=== PATIENT | female | born 1950 | race American Indian/Alaskan Native ===

== ENCOUNTER 2017-09-15 11:36 | Emergency (ER) | payer MEDICARE, OTHER ==
[2017-09-15 11:37] VITALS: BMI 39.8
[2017-09-15] MEDS ORDERED: Lidocaine 1% Inj (20ml) IJ STA (12:06)
[2017-09-15] MEDS ORDERED: TDAP Vaccine 0.5 mL Syr IM ONE (12:11)
--- NOTE | 2017-09-15 12:11 | ED PDOC ---
Arrival/HPI - General Chief Complaint: Finger,Hand,&Wrist Time Seen by Provider: 09/15/17 12:03 Historian: Patient - History of Present Illness Narrative History of Present Illness (Text): 09/15/17 12:07 67yo female with PMhx of hypertension who present with complaint of laceration to her left Hayden hand. states she accidentally cut her hand with a butter knife. She is not sure of her TD vaccine status. Denies any other complaint. Past Medical History - Provider Review Nursing Documentation Reviewed: Yes - Infectious Disease Hx of Infectious Diseases: None - Cardiac Hx Hypertension: Yes - Hematological/Oncological Hx Cancer: Yes (b/l breast) - Psychiatric Hx Substance Use: No - Surgical History Hx Mastectomy: Yes (b/l) Hx Open Heart Surgery: Yes Family/Social History - Physician Review Nursing Documentation Reviewed: Yes Family/Social History: Unknown Family HX Smoking Status: Never Smoked Hx Alcohol Use: No Hx Substance Use: No Allergies/Home Meds Allergies/Adverse Reactions: Allergies No Known Allergies Allergy (Verified 09/15/17 11:57) Home Medications: Home Meds Medication Instructions Recorded Confirmed Atorvastatin [Lipitor] 1 tab PO DAILY 09/15/17 09/15/17 Carvedilol [Coreg] 1 tab PO BID 09/15/17 09/15/17 Potassium Chloride [K-Tab] 20 meq PO DAILY 09/15/17 09/15/17 Review of Systems - Physician Review All systems were reviewed & negative as marked: Yes - Review of Systems Constitutional: Normal Eyes: Normal ENT: Normal Respiratory: Normal Cardiovascular: Normal Gastrointestinal: Normal Genitourinary Female: Normal Musculoskeletal: Normal Skin: Laceration (Left hand) Neurological: Normal Endocrine: Normal Hemo/Lymphatic: Normal Psychiatric: Normal Physical Exam Vital Signs Reviewed: Yes Vital Signs Temp Pulse Resp BP Pulse Ox 09/15/17 12:54 98 F 75 18 145/97 H 98 09/15/17 12:32 105 H 18 145/97 H 97 09/15/17 11:37 98.2 F 78 18 203/102 H 98 Temperature: Afebrile Blood Pressure: Normal Pulse: Regular Respiratory Rate: Normal Appearance: Positive for: Well-Appearing, Non-Toxic, Comfortable Pain Distress: None Mental Status: Positive for: Alert and Oriented X 3 - Systems Exam Head: Present: Atraumatic, Normocephalic Pupils: Present: PERRL Extroacular Muscles: Present: EOMI Conjunctiva: Present: Normal Mouth: Present: Moist Mucous Membranes Neck: Present: Normal Range of Motion Respiratory/Chest: Present: Clear to Auscultation, Good Air Exchange. No: Respiratory Distress, Accessory Muscle Use Cardiovascular: Present: Regular Rate and Rhythm, Normal S1, S2. No: Murmurs Abdomen: No: Tenderness, Distention, Peritoneal Signs Back: Present: Normal Inspection Upper Extremity: Present: Normal Inspection. No: Cyanosis, Edema Lower Extremity: Present: Normal Inspection. No: Edema Neurological: Present: GCS=15, CN II-XII Intact, Speech Normal Skin: Present: Warm, Dry, Normal Color, Laceration (1.6cm linear laceration on left hayden hand). No: Rashes Psychiatric: Present: Alert, Oriented x 3, Normal Insight, Normal Concentration Medical Decision Making ED Course and Treatment: 09/15/17 18:28 PT in ED for stated history. Wound was irrigated and approximated with 8interrupted sutures of #5 nylon. His TD booster was up dated. She was given prophylactic abx. Advised to keep wound clean and dry. referred to her PMD. - Medication Orders Current Medication Orders: Discontinued Medications Acetaminophen (Tylenol 325mg Tab) 650 mg PO STAT STA Stop: 09/15/17 12:12 Last Admin: 09/15/17 12:39 Dose: 650 mg Lidocaine HCl (Lidocaine 1% (20ml)) 1 ml IJ STAT STA Stop: 09/15/17 12:07 Tetanus/Reduced Diphtheria/Acell Pertussis (Boostrix Vaccine Inj) 0.5 ml IM .ONCE ONE Stop: 09/15/17 12:12 Last Admin: 09/15/17 12:39 Dose: 0.5 ml [facility] Immunization Data Document 09/15/17 12:39 [facility] (Rec: 09/15/17 12:40 [facility] [id number]) Immunization Data Vaccine Information Sheet Given No Procedure: Wound Repair - Consent Obtained Consent obtained: Verbal - Performed by Performed by: Mid-level Provider - Indications Indication(s):: Laceration - Location Location:: Left, Hand Shape:: Linear Dimensions Length cm: 1.6 Depth:: Epidermis - Anesthetic Technique Anesthetic Technique: Local Local/Regional Anesthetic:: Lidocaine 1% (5) - Debris Debris:: None - Irrigated Irrigated with ml of normal saline: 60 - Complexity Complexity:: Intermediate (2 layer) - Muscle repiar layer closed with Muscle repair layer closed with:: # (8), Size (5), Type (nylon), Technique ( interrupted), Wound well approximated, Abx ointment applied, Dressing applied, Tetanus ordered - Patient tolerated procedure Patient Tolerated Procedure:: Well Disposition/Present on Arrival - Present on Arrival Any Indicators Present on Arrival: No History of DVT/PE: No History of Uncontrolled Diabetes: No Urinary Catheter: No History of Decub. Ulcer: No History Surgical Site Infection Following: None - Disposition Have Diagnosis and Disposition been Completed?: Yes Diagnosis: Hand laceration Disposition: HOME/ ROUTINE Disposition Time: 12:35 Patient Plan: Discharge Condition: STABLE Discharge Instructions (ExitCare): Laceration Repair Additional Instructions: Keep wound clean and dry follow up with your doctor in 7 to 10daysfor suture removal Return to ED for fever, discharge, redness Prescriptions: Cephalexin [cephalexin] 500 mg PO TID #15 cap Referrals: [facility] at [place] [Outside] - Follow up with primary Forms: [facility] (Urdu), WORK NOTE
[2017-09-15 12:29] VITALS: RESP 18
[2017-09-15] MEDS ORDERED: Bacitracin Ointment 30 GM TUBE TOP ONE (12:29)
[2017-09-15 12:32] VITALS: BP 145/97
[2017-09-15 13:08] VITALS: PULSE 75; TEMP 98; O2SAT 98
== END 2017-09-15 13:08 | disposition home or self-care (01) ==
LOC: ED 11:36
DX: S61.412A Laceration without foreign body of left hand, initial encounter (principal); W26.0XXA Contact with knife, initial encounter; Z23 Encounter for immunization; I10 Essential (primary) hypertension

== ENCOUNTER 2017-09-23 13:46 | Emergency (ER) | payer MEDICARE, OTHER ==
[2017-09-23 13:46] VITALS: BMI 39.8
--- NOTE | 2017-09-23 14:05 | ED PDOC ---
Arrival/HPI - General Time Seen by Provider: 09/23/17 14:04 Historian: Patient - History of Present Illness Narrative History of Present Illness (Text): 09/23/17 14:05 67 y/o female, pmh including htn/hyperlipidemia, nkda, here for the suture removal from the lt. hand s/p sutured about 9 days ago. Pt. stated that she originally had 8 sutures on the lt. hand palmar but 4 of them fall out and she pull it out, remains with 4 sutures, no fall or trauma, no numbness or tingling , no headache or night sweat, no rash, no other medical or psychological complaints. Past Medical History - Provider Review Nursing Documentation Reviewed: Yes - Infectious Disease Hx of Infectious Diseases: None - Cardiac Hx Hypertension: Yes - Hematological/Oncological Hx Cancer: Yes (b/l breast) - Psychiatric Hx Substance Use: No - Surgical History Hx Mastectomy: Yes (b/l) Hx Open Heart Surgery: Yes Family/Social History - Physician Review Nursing Documentation Reviewed: Yes Family/Social History: Unknown Family HX Smoking Status: Never Smoked Hx Alcohol Use: No Hx Substance Use: No Allergies/Home Meds Allergies/Adverse Reactions: Allergies No Known Allergies Allergy (Verified 09/15/17 11:57) Home Medications: Home Meds Medication Instructions Recorded Confirmed Atorvastatin [Lipitor] 1 tab PO DAILY 09/15/17 09/15/17 Carvedilol [Coreg] 1 tab PO BID 09/15/17 09/15/17 Potassium Chloride [K-Tab] 20 meq PO DAILY 09/15/17 09/15/17 Review of Systems - Review of Systems Constitutional: absent: Fatigue, Fevers ENT: absent: Hearing Changes Respiratory: absent: SOB, Cough Cardiovascular: absent: Chest Pain Gastrointestinal: absent: Abdominal Pain, Diarrhea, Nausea, Vomiting Skin: Laceration. absent: Rash, Pruritis, Skin Lesions Neurological: absent: Headache, Dizziness Psychiatric: absent: Anxiety, Depression, Suicidal Ideation Physical Exam Vital Signs Reviewed: Yes Vital Signs Temp Pulse Resp BP Pulse Ox 09/23/17 14:19 98.1 F 76 16 140/88 98 Temperature: Afebrile Blood Pressure: Normal Pulse: Regular Respiratory Rate: Normal Appearance: Positive for: Well-Appearing, Non-Toxic, Comfortable Pain Distress: None Mental Status: Positive for: Alert and Oriented X 3 - Systems Exam Head: Present: Atraumatic, Normocephalic Pupils: Present: PERRL Extroacular Muscles: Present: EOMI Conjunctiva: Present: Normal Neck: Present: Normal Range of Motion Respiratory/Chest: Present: Clear to Auscultation, Good Air Exchange. No: Respiratory Distress, Accessory Muscle Use Cardiovascular: Present: Regular Rate and Rhythm, Normal S1, S2. No: Murmurs Abdomen: No: Tenderness, Distention, Peritoneal Signs Back: Present: Normal Inspection Upper Extremity: Present: Normal Inspection, Other (Lt. hand palmar visible 4 sutures with healed laceration wound, no streaking or ulcers, no signs of infection, FROM without limitation, sensation intact, motor 5/5, +radial pulse, capillary refill< 2 seconds, neurovascular intact. ). No: Cyanosis, Edema Lower Extremity: Present: Normal Inspection. No: Edema Neurological: Present: GCS=15, CN II-XII Intact, Speech Normal Skin: Present: Warm, Dry, Normal Color. No: Rashes Psychiatric: Present: Alert, Oriented x 3, Normal Insight, Normal Concentration Medical Decision Making ED Course and Treatment: 09/23/17 15:08 -4 sutures removed with success, no visible remaining sutures. -Discharge home with education on follow up with your own pmd within 2 days, return to the ER for any new or worsening signs or symptoms. - PA / [employer] / Resident Statement MD/DO has reviewed & agrees with the documentation as recorded. Disposition/Present on Arrival - Present on Arrival Any Indicators Present on Arrival: No History of DVT/PE: No History of Uncontrolled Diabetes: No Urinary Catheter: No History of Decub. Ulcer: No History Surgical Site Infection Following: None - Disposition Have Diagnosis and Disposition been Completed?: Yes Diagnosis: Visit for suture removal Disposition: HOME/ ROUTINE Disposition Time: 15:09 Patient Plan: Discharge Condition: GOOD Additional Instructions: -Discharge home with education on follow up with your own pmd within 2 days, return to the ER for any new or worsening signs or symptoms. Referrals: [facility] at [facility] [Outside] - Follow up with primary Forms: WORK NOTE
[2017-09-23 14:28] VITALS: BP 140/88; PULSE 76; RESP 16; TEMP 98.1; O2SAT 98
== END 2017-09-23 15:20 | disposition home or self-care (01) ==
LOC: ED 13:46
DX: Z48.02 Encounter for removal of sutures (principal)